=== PATIENT | male | born 1990 | race Caucasian/White ===

== ENCOUNTER 2024-09-28 11:30 | Emergency (ER) | payer OTHER ==
[~2024-09-28] VITALS: Ht 160 cm; Wt 80.7 kg
[2024-09-28] MEDS: ACETAMINOPHEN 500 MG TAB PO ONE (16:17)
[2024-09-28] MEDS: KETOROLAC 30 MG/ML 1ML VIAL IM ONE (16:17)
[2024-09-28] MEDS ORDERED: IBUP-1022 PO (17:10)
[2024-09-28] MEDS ORDERED: ACET-683 PO (17:10)
[2024-09-28] MEDS ORDERED: DICL1PAT6 TD (17:10)
[2024-09-28 17:22] VITALS: BP 122/78; TEMP 97.6; O2SAT 98
== END 2024-09-28 17:24 | disposition home or self-care (01) ==
LOC: M ED 11:30
DX: S86.911A Strain of unspecified muscle(s) and tendon(s) at lower leg level, right leg, initial encounter (principal); X58.XXXA Exposure to other specified factors, initial encounter; Y92.9 Unspecified place or not applicable; Y93.02 Activity, running; Y99.9 Unspecified external cause status; M54.50 Low back pain, unspecified; F17.200 Nicotine dependence, unspecified, uncomplicated; F17.290 Nicotine dependence, other tobacco product, uncomplicated
CPT/HCPCS: 76882; 96372; 99284; J1885

== ENCOUNTER 2025-04-12 23:23 | Emergency (ER) | payer OTHER ==
[~2025-04-12] VITALS: Ht 162.6 cm; Wt 79.5 kg
[~2025-04-12 23:23] MED LIST: ACET-683 PO; DICL1PAT6 TD; IBUP-1022 PO
[2025-04-12] MEDS: NS (Normal Saline) 0.9% 1,000 ML IV ONE (23:40)
[2025-04-12] MEDS: FAMOTIDINE 20 MG/2 ML VIAL IVP ONE (23:50)
[2025-04-12] MEDS: diphenhydrAMINE 50 MG/ML VIAL IV ONE (23:50)
[2025-04-12] MEDS: ALBUTEROL SULFATE 2.5 MG/0.5 ML INH CONCENTRATE NEB SOLN NEB ONE (23:51)
[2025-04-13] MEDS ORDERED: PEPC1TAB5 PO (01:05)
[2025-04-13] MEDS ORDERED: PRED20TA PO (01:05)
[2025-04-13] MEDS ORDERED: HYDR-3363 PO (01:05)
[2025-04-13 01:15] VITALS: BP 113/74; TEMP 98.3
[2025-04-13 01:23] VITALS: O2SAT 96
== END 2025-04-13 01:35 | disposition home or self-care (01) ==
LOC: M ED 23:23
DX: T78.40XA Allergy, unspecified, initial encounter (principal); Y92.009 Unspecified place in unspecified non-institutional (private) residence as the place of occurrence of the external cause; Y93.9 Activity, unspecified; F17.200 Nicotine dependence, unspecified, uncomplicated; Z79.899 Other long term (current) drug therapy
CPT/HCPCS: 93041; 94760; 99285; J1200; J1308; J2919